=== PATIENT | female | born 1975 | race Caucasian/White ===

== ENCOUNTER → 2018-03-19 | Outpatient (CLI) | payer OTHER ==
--- NOTE | 2018-03-19 15:02 | RAD ---
Indication: Left breast palpable lump. History of excisional biopsy at 3:00 position. TECHNIQUE: Limited left outer breast ultrasound in the region of palpable abnormality. COMPARISON: Ultrasound from 2015 and same day diagnostic mammogram. FINDINGS: Limited left breast ultrasound at 3:00 position approximately 7 cm from the nipple in the region of palpable abnormality demonstrates no abnormal solid or cystic lesion. IMPRESSION: No sonographic findings in the region of palpable abnormality. Findings may be secondary to scar tissue. Clinically correlate. BI-RADS 2: Benign finding. Electronically signed by: Boni Richards DO (03/19/2018 2:58 PM) [facility]
--- NOTE | 2018-03-19 15:47 | RAD ---
DATE: 03/19/2018 EXAM: DIGITAL DIAGNOSTIC BILATERAL HISTORY: Left breast palpable lump. COMPARISON: 2014 This study was interpreted with the benefit of Computerized Aided Detection (CAD). FINDINGS: Breast Density: DENSE The breast Parenchyma is dense, which could reduce the sensitivity of mammography. Breast parenchyma level density D.. Theskin and nipples are within normal limits. No suspicious calcifications, spiculated mass or area of architectural distortion. No mammographic abnormality seen in the region marked by BB in the left breast. IMPRESSION: No abnormal mammographic findings. BI-RADS CATEGORY: 2 BENIGN FINDING(S) RECOMMENDED FOLLOW-UP: 12M 12 MONTH FOLLOW-UP PQRS compliance statement: Patient information was entered into a reminder system with a target due date for the next mammogram. Mammography is a sensitive method for finding small breast cancers, but it does not detect them all and is not a substitute for careful clinical examination. A negative mammogram does not negate a clinically suspicious finding and should not result in delay in biopsying a clinically suspicious abnormality. "Our facility is accredited by the [employer] Mammography Program."
== END | disposition home or self-care (01) ==
LOC: MAMMO 13:34
PROVIDERS: ATTEND Nurse Practitioner Family
DX: R92.8 Other abnormal and inconclusive findings on diagnostic imaging of breast (principal)
CPT/HCPCS: 76641; 77066